=== PATIENT | male | born 1955 | race Asian ===

== ENCOUNTER 2024-03-18 19:38 | Emergency (ER) | payer OTHER ==
[~2024-03-18] VITALS: Ht 162.6 cm; Wt 74.4 kg
[2024-03-18 19:52] VITALS: BP_SYST 115; PULSE 60; RESP 16; TEMP 97.6; O2SAT 98
[2024-03-18] MEDS: HYDROcodone/ACETAMIN 10-325 MG TAB PO ONE (20:39)
[2024-03-18] MEDS: IBUPROFEN 800 MG TABLET PO ONE (20:40)
[2024-03-18 21:04] LABS: ERYTHROCYTE SEDIMENTATION RATE 40 MM/HR (0-15)
[2024-03-18 21:15] LABS: ALBUMIN 3.5 g/dL (3.4-4.8); BILIRUBIN,DIRECT 0.1 mg/dL (0.0-0.3); CALCIUM 8.1 mg/dL (8.4-11.0); CREATININE 1.37 mg/dL (0.55-1.30); POTASSIUM 4.9 mmol/L (3.5-5.1); TOTAL BILIRUBIN 0.2 mg/dL (0.0-1.0); TOTAL PROTEIN, SERUM 7.4 g/dL (6.4-8.3)
[2024-03-18 21:22] LABS: PROTHROMBIN TIME 10.7 SECS (9.5-12.5)
[2024-03-18 21:45] LABS: BASOPHILS % (AUTO) 0.5 % (0.0-2.0); EOSINOPHILS # (AUTO) 0.4 K/uL (0.0-0.4); HEMATOCRIT 40.5 % (36-54); HEMOGLOBIN 12.5 g/dL (14.0-18.0); LYMPHOCYTES # (AUTO) 1.8 K/uL (1.0-5.5); LYMPHOCYTES % (AUTO) 26.3 % (20.5-51.5); MEAN CORPUSCULAR HEMOGLOBIN 21 pg (27-31); MEAN CORPUSCULAR HGB CONC 31 % (32-36); MEAN CORPUSCULAR VOLUME 67 fL (79.0-98.0); MONOCYTES # (AUTO) 0.8 K/uL (0.0-1.0); MONOCYTES % (AUTO) 12.3 % (1.7-9.3); NEUTROPHILS # (AUTO) 3.7 K/uL (1.8-7.7); NEUTROPHILS % (AUTO) 54.9 % (40.0-70.0); PLATELET COUNT (AUTO) 214 K/uL (130-430); RED BLOOD CELL COUNT(AUTO) 6.04 MIL/uL (4.2-6.2); RED CELL DISTRIBUTION WIDTH 14.3 % (9.0-15.0); WHITE BLOOD COUNT (AUTO) 6.8 K/uL (4.8-10.8)
[2024-03-18] MEDS: NACL 0.9% 2,000 ML IV ONE (22:05)
[2024-03-18] MEDS: SODIUM BICARBONATE 8.4% JECT 50 MEQ/50 ML SYRINGE IVP ONE (22:06)
[2024-03-18 22:40] LABS: CKMB RELATIVE INDEX 0.7 (0.0-2.9); CREATINE KINASE MB 6.1 ng/mL (0-3.6)
[2024-03-18 23:27] VITALS: BP_SYST 145; PULSE 79; RESP 18; TEMP 97.2; O2SAT 98
== END 2024-03-18 23:27 | disposition home or self-care (01) ==
LOC: SED 19:38
DX: M62.82 Rhabdomyolysis (principal); N17.9 Acute kidney failure, unspecified; J45.909 Unspecified asthma, uncomplicated; I10 Essential (primary) hypertension; Z79.899 Other long term (current) drug therapy
CPT/HCPCS: 99283; 96374; 96361; 80076; 80048; 82550; 82553; 85025; 85610; 85651; 85730; 36415; 82397; J7030

== ENCOUNTER 2024-03-20 09:06 | Inpatient (IN) | payer OTHER ==
[~2024-03-20] VITALS: Ht 162.6 cm; Wt 74.0 kg
[2024-03-20 09:13] VITALS: BP_SYST 138; PULSE 72; RESP 18; TEMP 98.3; O2SAT 98
[2024-03-20 09:46] LABS: BASOPHILS % (AUTO) 0.4 % (0.0-2.0); EOSINOPHILS # (AUTO) 0.3 K/uL (0.0-0.4); HEMATOCRIT 43.1 % (36-54); HEMOGLOBIN 13.4 g/dL (14.0-18.0); LYMPHOCYTES # (AUTO) 1.7 K/uL (1.0-5.5); LYMPHOCYTES % (AUTO) 27.6 % (20.5-51.5); MEAN CORPUSCULAR HEMOGLOBIN 21 pg (27-31); MEAN CORPUSCULAR HGB CONC 31 % (32-36); MEAN CORPUSCULAR VOLUME 68 fL (79.0-98.0); MONOCYTES # (AUTO) 0.7 K/uL (0.0-1.0); MONOCYTES % (AUTO) 10.8 % (1.7-9.3); NEUTROPHILS # (AUTO) 3.4 K/uL (1.8-7.7); NEUTROPHILS % (AUTO) 56.2 % (40.0-70.0); PLATELET COUNT (AUTO) 214 K/uL (130-430); RED BLOOD CELL COUNT(AUTO) 6.38 MIL/uL (4.2-6.2); RED CELL DISTRIBUTION WIDTH 14.5 % (9.0-15.0)
[2024-03-20 09:54] LABS: BILIRUBIN,URINE NEGATIVE (NEGATIVE); BLOOD, URINE TRACE (NEGATIVE); CLARITY/URINE CLEAR (CLEAR); COLOR,URINE YELLOW (YELLOW); GLUCOSE,URINE NEGATIVE (NEGATIVE); KETONES,URINE NEGATIVE (NEGATIVE); LEUKOCYTE ESTERASE ,URINE NEGATIVE (NEGATIVE); NITRITE, URINE NEGATIVE (NEGATIVE); PROTEIN URINE NEGATIVE (NEGATIVE); UROBILINOGEN,URINE 0.2 (0.2-1.0)
[2024-03-20 10:11] LABS: POTASSIUM 4.4 mmol/L (3.5-5.1)
[2024-03-20 10:20] LABS: CALCIUM 9.2 mg/dL (8.4-11.0); CREATININE 0.94 mg/dL (0.55-1.30)
[2024-03-20 10:23] LABS: BACTERIA,URINE None Seen /HPF (None Seen); RBC,URINE 0-3 /HPF (0-3); WBC,URINE NONE SEEN /HPF (0-3)
[2024-03-20 10:43] LABS: CKMB RELATIVE INDEX 0.5 (0.0-2.9); CREATINE KINASE MB 4.9 ng/mL (0-3.6); HYPOCHROMASIA SLIGHT; TARGET CELLS FEW
[2024-03-20] MEDS: NACL 0.9% 1,000 ML IV ONE (11:01)
[2024-03-20] MEDS: SODIUM BICARBONATE 8.4% JECT 50 MEQ/50 ML SYRINGE IVP ONE (11:15)
[2024-03-20] MEDS ORDERED: LISI20TA30 PO (13:07)
[2024-03-20] MEDS ORDERED: SIMV-46 PO (13:07)
[2024-03-20] MEDS ORDERED: OMEP20CA15 PO (13:07)
[2024-03-20] MEDS ORDERED: GABAPENTIN (13:07)
[2024-03-20] MEDS ORDERED: ALBUTEROL (13:07)
[2024-03-20] MEDS ORDERED: MONT-40 PO (13:07)
[2024-03-20] MEDS ORDERED: HYDROcodone/ACETAMIN 5-325 MG TAB (NORCO/ VICODIN) PO PRN (13:15)
[2024-03-20] MEDS: SODIUM BICARBONATE 8.4% JECT 100 MEQ in D5W 1,000 ML IVP ONE (16:27)
[2024-03-20 18:07] VITALS: BP_SYST 137; PULSE 60; RESP 18; TEMP 97.4; O2SAT 97
[2024-03-20 20:00] VITALS: BP_SYST 137; PULSE 78; RESP 20; TEMP 98.5; O2SAT 95
[2024-03-20] MEDS ORDERED: OMEPRAZOLE Non-Formulary 20 MG CAPSULE.DR PO PRN (22:45)
[2024-03-21] MEDS: SODIUM BICARBONATE 8.4% JECT 100 MEQ in D5W 1,000 ML IVP SCH (00:55)
[2024-03-21 01:00] VITALS: BP_SYST 143; PULSE 84; RESP 20; TEMP 97.5; O2SAT 95
[2024-03-21 06:36] LABS: BASOPHILS % (AUTO) 0.4 % (0.0-2.0); EOSINOPHILS # (AUTO) 0.3 K/uL (0.0-0.4); EOSINOPHILS % (AUTO) 5.1 % (0.0-4.0); HEMATOCRIT 39.7 % (36-54); HEMOGLOBIN 12.4 g/dL (14.0-18.0); LYMPHOCYTES # (AUTO) 1.9 K/uL (1.0-5.5); MEAN CORPUSCULAR HEMOGLOBIN 21 pg (27-31); MEAN CORPUSCULAR HGB CONC 31 % (32-36); MEAN CORPUSCULAR VOLUME 68 fL (79.0-98.0); MONOCYTES # (AUTO) 0.8 K/uL (0.0-1.0); MONOCYTES % (AUTO) 13.9 % (1.7-9.3); NEUTROPHILS % (AUTO) 49.6 % (40.0-70.0); PLATELET COUNT (AUTO) 202 K/uL (130-430); RED BLOOD CELL COUNT(AUTO) 5.86 MIL/uL (4.2-6.2); RED CELL DISTRIBUTION WIDTH 14.2 % (9.0-15.0)
[2024-03-21 07:09] LABS: ALBUMIN 3.1 g/dL (3.4-4.8); CALCIUM 8.9 mg/dL (8.4-11.0); CREATININE 0.96 mg/dL (0.55-1.30); POTASSIUM 4.4 mmol/L (3.5-5.1); TOTAL BILIRUBIN 0.2 mg/dL (0.0-1.0); TOTAL PROTEIN, SERUM 6.9 g/dL (6.4-8.3)
[2024-03-21 07:58] LABS: CKMB RELATIVE INDEX 0.4 (0.0-2.9); CREATINE KINASE MB 1.9 ng/mL (0-3.6)
[2024-03-21] MEDS ORDERED: PANTOPRAZOLE SODIUM 40 MG TAB PO PRN (08:00)
[2024-03-21 08:30] VITALS: BP_SYST 142; PULSE 61; RESP 18; TEMP 98.2; O2SAT 96
[2024-03-21] MEDS: MONTELUKAST 10 MG TABLET PO SCH (08:47)
[2024-03-21] MEDS: lisinopriL 20 MG TABLET PO SCH (08:47)
[2024-03-21 09:00] VITALS: O2SAT 96
[2024-03-21 12:00] VITALS: BP_SYST 103; PULSE 79; RESP 18; TEMP 97.9; O2SAT 98
[2024-03-21 16:13] VITALS: BP_SYST 130; PULSE 80; RESP 20; TEMP 97.5; O2SAT 99
[2024-03-21 16:21] VITALS: BP_SYST 130; PULSE 81; RESP 20; TEMP 97.9; O2SAT 99
== END 2024-03-21 17:08 | disposition home or self-care (01) | DRG 558 ==
LOC: SED 09:06 → SMU 13:08
PROVIDERS: ADMIT Internal Medicine; ATTEND Internal Medicine
DX: M62.82 Rhabdomyolysis (principal); E44.1 Mild protein-calorie malnutrition; I10 Essential (primary) hypertension; E78.5 Hyperlipidemia, unspecified; T46.6X5A Adverse effect of antihyperlipidemic and antiarteriosclerotic drugs, initial encounter; D64.9 Anemia, unspecified; Z68.28 Body mass index [BMI] 28.0-28.9, adult; Z79.899 Other long term (current) drug therapy; Y92.89 Other specified places as the place of occurrence of the external cause
CPT/HCPCS: 36415; 80048; 80053; 80061; 81000; 81001; 81015; 82550; 82553; 83605; 85025; 96361; 96365; 96366; 99285; J7060